=== PATIENT | female | born 1950 | race Native Hawaiian/Other Pacific Islander ===

== ENCOUNTER 2017-09-11 09:18 | Outpatient (CLI) | payer OTHER | END 2017-09-11 20:39 | disposition home or self-care (01) | LOC: MAMMO 09:18 | DX: Z12.31 Encounter for screening mammogram for malignant neoplasm of breast (principal) ==

== ENCOUNTER 2018-10-01 08:59 | Outpatient (CLI) | payer OTHER | END 2018-10-01 23:44 | disposition home or self-care (01) | LOC: MAMMO 08:59 | DX: Z12.31 Encounter for screening mammogram for malignant neoplasm of breast (principal) ==

== ENCOUNTER 2019-01-13 07:53 | Outpatient (CLI) | payer OTHER | END 2019-01-13 23:26 | disposition home or self-care (01) | LOC: RESP 07:53 | DX: R60.0 Localized edema (principal) | CPT/HCPCS: 93306 ==

== ENCOUNTER 2020-09-01 09:40 | Outpatient (CLI) | payer OTHER | END 2020-09-01 19:04 | disposition home or self-care (01) | LOC: MAMMO 09:40 | PROVIDERS: ATTEND Nurse Practitioner Family | DX: Z12.31 Encounter for screening mammogram for malignant neoplasm of breast (principal) ==

== ENCOUNTER 2021-08-07 11:11 | Outpatient (CLI) | payer OTHER | END 2021-08-07 19:03 | disposition home or self-care (01) | LOC: RAD 11:11 | PROVIDERS: ATTEND Nurse Practitioner Family | DX: S93.402A Sprain of unspecified ligament of left ankle, initial encounter (principal); Y92.9 Unspecified place or not applicable ==

== ENCOUNTER 2021-11-07 08:53 | Outpatient (CLI) | payer OTHER | END 2021-11-07 19:58 | disposition home or self-care (01) | LOC: MAMMO 08:53 | PROVIDERS: ATTEND Nurse Practitioner Family | DX: Z12.31 Encounter for screening mammogram for malignant neoplasm of breast (principal) ==